=== PATIENT | female | born 1985 | race Caucasian/White ===

== ENCOUNTER 2023-06-06 09:03 | Emergency (ER) | payer MEDICARE ==
[~2023-06-06] VITALS: Ht 165.1 cm; Wt 95.7 kg
[2023-06-06] MEDS ORDERED: CIPROFLOX-DEXA7.5 ML EACH EAR (09:46)
[2023-06-06] MEDS ORDERED: CIPRO HC OTIC S10 ML LEFT EAR (09:49)
[2023-06-06 09:53] VITALS: O2SAT 98
== END 2023-06-06 09:53 | disposition home or self-care (01) ==
LOC: FSED 09:14
DX: H60.92 Unspecified otitis externa, left ear (principal); F41.9 Anxiety disorder, unspecified; M79.7 Fibromyalgia; F43.10 Post-traumatic stress disorder, unspecified; Z96.651 Presence of right artificial knee joint
CPT/HCPCS: 99283